=== PATIENT | female | born 1975 | race African-American/Black ===

== ENCOUNTER 2023-12-04 05:27 | Emergency (ER) | payer OTHER, SELFPAY ==
[2023-12-04 05:36] VITALS: BP 150/83; PULSE 83; RESP 16; TEMP 36.4; O2SAT 98; BMI 26.8
--- NOTE | 2023-12-04 05:58 | ED.GENADULT ---
HPI - General Adult General Chief complaint: Cough Stated complaint: difficulty breathing Time Seen by Provider: 12/04/23 05:46 Source: patient and family Mode of arrival: ambulatory Limitations: no limitations History of Present Illness HPI narrative: Family acts as sign language interpreter per patient request. 48-year-old female diagnosed with a left lower lobe pneumonia on 11/27. She had been symptomatic for 1 week at that time. Notes reviewed from Dr. Flores. O2 sats were 94% on room air and she was afebrile at the time. Lungs were described as coarse respiratory sounds right greater than left clearing after 1 albuterol neb. she was treated with prednisone, azithromycin and albuterol. Chest x-ray was completed and is reviewed. Patient presents to the ED not because she is having any worsening or new symptoms, but because she has completed her antibiotic and the cough is not completely gone. Her follow-up appointment is not for several more weeks. She assumed that she would be completely better by the time her medications were finished and she requests more medication. No severe shortness of breath, no fever. Appetite normal. Cough is still persistent but not as bad. Has some mild discomfort in the upper chest only when she coughs. No exertional pain, palpitations or cardiac symptoms. Is not using any [id number] medications to supplement her healing. Nonsmoker, no pertinent travel. No long-term medications, no chronic illness, no allergies. Nonsmoker. ROS is notable for the generalized and respiratory symptoms as described above, otherwise denies times 12 systems. Related Data Allergies Allergy/AdvReac Type Severity Reaction Status Date / Time No Known Drug Allergies Allergy Verified 12/04/23 05:41 Exam Const: Vital Signs, click to edit/add: Vital Signs - 24 hr 12/04/23 05:36 Temperature 97.6 F Pulse Rate [Pulse Oximeter] 83 Respiratory Rate 16 Blood Pressure [Ri ght Upper Arm] 150/83 H Pulse Oximetry 98 Oxygen Delivery Me thod Room Air Documenting provider has reviewed patient's vital signs: yes Common normals: no apparent distress Other: Patient able to speak full sentences, appears well nourished and well hydrated. HENMT: Face and sinus: normal facial exam Mouth: oral and palatal mucosa normal Throat: posterior oropharynx normal Eye: Common normals: conjunctivae normal General eye: normal appearance of both eyes Conjunctiva: conjunctiva(e) normal Neck & C-Spine: Common normals: full ROM and no lymphadenopathy Resp: Common normals: normal respiratory effort Effort & inspection: able to speak in complete sentences Other: No wheeze today. Minimal rhonchi in left posterior mid lung field only. No crackles. Right lung elam are completely normal. Cardio: Common normals: regular rate, regular rhythm, S1 normal heart sound, S2 normal heart sound and no murmurs Rate: regular rate Rhythm: regular rhythm Heart sounds: S1 normal and S2 normal Extremity: Common normals: normal capillary refill Psych: Attitude: engaged Activity/motor behavior: appropriate eye contact Skin: Common normals: no rashes or lesions noted General skin exam: no rashes or lesions noted Course Course ED Course: 48-year-old female with persistent cough and recent diagnosis of pneumonia, completion of prednisone and antibiotic therapy. Exam, respiratory rate, oxygen levels are all suggestive of interval improvement. Counseled patient and family that I do think that she is healing appropriately. Unfortunately, the inflammation from the pneumonia will take several more weeks to completely resolve. This surprises many people. I do not think a longer course of antibiotics is needed or helpful. It is okay to use Tylenol and/or ibuprofen for mild discomfort from the cough and is okay to try noia-hek-pnesbva cough suppressants if you find them helpful. Otherwise stay active and continue deep breathing and cough to clear mucus. Alarm symptoms such as significant shortness of breath, return if fevers, worsening of symptoms would warrant repeat office visit. Otherwise keep follow-up as planned. No additional new medications today. Vital Signs Vital signs: Initial Vital Signs Temperature 97.6 F 12/04/23 05:36 Temperature Source Temporal Artery Scan 12/04/23 05:36 Pulse Rate 83 12/04/23 05:36 Pulse Rhythm Regular 12/04/23 05:36 Respiratory Rate 16 12/04/23 05:36 Blood Pressure 150/83 H 12/04/23 05:36 Blood Pressure Mean 105 12/04/23 05:36 Blood Pressure Position Sitting 12/04/23 05:36 Pulse Oximetry 98 12/04/23 05:36 Oxygen Delivery Method Room Air 12/04/23 05:36 Vital Signs Temperature 97.6 F 12/04/23 05:36 Pulse Rate 83 12/04/23 05:36 Respiratory Rate 16 12/04/23 05:36 Blood Pressure 150/83 H 12/04/23 05:36 Pulse Oximetry 98 12/04/23 05:36 Oxygen Delivery Method Room Air 12/04/23 05:36 Temperature 97.6 F 12/04/23 05:36 Pulse Rate 83 12/04/23 05:36 Respiratory Rate 16 12/04/23 05:36 Blood Pressure 150/83 H 12/04/23 05:36 Pulse Oximetry 98 12/04/23 05:36 Oxygen Delivery Method Room Air 12/04/23 05:36 Discharge Plan Discharge Clinical Impression: Cough Patient Disposition: Home w/ Parent or Adult Condition: Stable Instructions: Pneumonia (ED) Additional Instructions: As we discussed, it is not uncommon that the cough and mild chest discomfort are continuing even though you have just finished your antibiotics. The antibiotics will kill the bacteria, but it will take your lung several more weeks to recover from the inflammation due to the infection. It is okay to use Tylenol and or ibuprofen for any chest discomfort. Your oxygen levels, respiratory rate and vital signs look great today. There is no longer any wheezing today which is good news. When I listen to your lungs, it sounds improved from what was described in the doctor's note last week. All signs point to your infection healing. It will take about a month for you to recover from this illness completely. The cough should gradually improve. You should come into the emergency department if you are having worsening of symptoms, high fever, severe shortness of breath or other signs of complications. Activity Level: No Restrictions Discharge Diet: Regular Stand Alone Forms: Home Environmental Systems Info Instructions
== END 2023-12-04 06:12 | disposition home or self-care (01) ==
PROVIDERS: Emergency Provider Family Medicine; PCP Family Medicine
DX: R05.9 Cough, unspecified (principal)
CPT/HCPCS: 99282; 99283